=== PATIENT | female | born 1975 | race African-American/Black ===

== ENCOUNTER 2021-11-12 12:14 | Emergency (ER) | payer SELFPAY ==
[2021-11-12 15:18] LABS: ALT (SGPT) 15 U/L (8-55); AST (SGOT) 27 U/L (5-34); Albumin 3.3 g/dL (3.5-5.0); Alkaline Phosphatase 66 U/L (40-110); Anion Gap 15 mmol/L (10-20); BUN (Urea Nitrogen) 9 mg/dL (7.0-18.7); Bilirubin, Total 0.2 mg/dL (0.2-1.2); Calc. Creatinine Clearance 0 mL/min (70-130); Calcium 8.5 mg/dL (7.8-10.44); Carbon Dioxide 24 mmol/L (22-29); Chloride 104 mmol/L (98-107); Globulin 4.4 g/dL (2.4-3.5); Glucose 73 mg/dL (70-105); Potassium 4.8 mmol/L (3.5-5.1); Protein, Total 7.7 g/dL (6.0-8.3); Sodium 138 mmol/L (136-145)
[2021-11-12 16:18] LABS: Bilirubin Neg (Negative); Blood, Urine Negative (Negative); Clarity Clear (Clear); Glucose, Urine (Dipstick) Normal (Negative); Ketone, Urine Negative (Negative); Leukocyte 100 (Negative); Nitrite Negative (Negative); Protein, Urine (Dipstick) Negative (Neg-Trace); Urobilinogen Normal mg/dL (Less than 2)
[2021-11-12 16:30] LABS: Bacteria/HPF Rare-Few HPF (None Seen); RBC/HPF 0-3 HPF (0-3)
[2021-11-12 16:38] LABS: Hemoglobin 6.6 g/dL (12.0-15.5); Mean Corpuscular HGB CONC 27.5 g/dL (32.0-36.0); Mean Corpuscular Hemoglobin 14.3 pg (27.0-33.0); Mean Corpuscular Volume 51.9 fl (81.6-98.3); Platelet Count 416 10x3/uL (150-450); RBC Distribution Width 24.1 % (11.5-14.5); Red Blood Cell (RBC) Count 4.62 10x6/uL (3.90-5.03); White Blood Cell (WBC) Count 13.2 10x3/uL (3.5-10.5)
[2021-11-12] MEDS ORDERED: Acetaminophen 500 MG TAB ONE (17:21)
[2021-11-12 17:32] LABS: #Basophils 0.1 10x3/uL (0.0-0.2); #Eosinphils 0.3 10x3/uL (0.0-0.5); #Monocytes 0.7 10x3/uL (0.0-1.1); #Neutrophils 9.4 10x3/uL (1.5-8.4); %Basophils 0.9 % (0.0-2.0); %Eosinophils 2.5 % (0.0-6.0); %Lymphocytes 19.5 % (18.0-47.0); %Monocytes 5.1 % (0.0-10.0); %Neutrophils 71.2 % (40.0-75.0)
[2021-11-12 17:33] LABS: Anisocytosis MARKED = >30 cells (100X) (0-5/hpf); Hypochromia MARKED = >30 cells (100X) (0-5/hpf); Microcytosis MARKED = >30 cells (100X) (0-5/hpf); Platelet Morphology Comment Appears Adequate
== END 2021-11-12 18:26 | disposition home or self-care (01) ==
LOC: CSHERS 12:14
DX: D64.9 Anemia, unspecified (principal); I10 Essential (primary) hypertension
CPT/HCPCS: 36415; 71045; 80053; 81003; 81015; 84484; 85025; 86850; 86900; 86901; 93005

== ENCOUNTER 2023-11-28 09:12 | Emergency (ER) | payer SELFPAY ==
[2023-11-28 10:13] LABS: Anion Gap 15 mmol/L (10-20); BUN (Urea Nitrogen) 10 mg/dL (7.0-18.7); Calc. Creatinine Clearance 0 mL/min (70-130); Calcium 8.4 mg/dL (7.8-10.44); Carbon Dioxide 19 mmol/L (22-29); Chloride 107 mmol/L (98-107); Estimated GFR 78; Glucose 82 mg/dL (70-105); Potassium 4.1 mmol/L (3.5-5.1); Sodium 137 mmol/L (136-145)
[2023-11-28] MEDS ORDERED: Ipratropium/Albuterol 3 ML NEB ONE (10:16)
[2023-11-28 10:22] LABS: Troponin I Less than 0.010 ng/mL (< 0.028)
[2023-11-28 10:55] LABS: #Basophils 0.1 10x3/uL (0.0-0.2); #Eosinphils 0.2 10x3/uL (0.0-0.5); #Monocytes 0.4 10x3/uL (0.0-1.1); #Neutrophils 6.1 10x3/uL (1.5-8.4); %Basophils 1.1 % (0.0-2.0); %Lymphocytes 22.4 % (18.0-47.0); %Monocytes 4.9 % (0.0-10.0); %Neutrophils 69.1 % (40.0-75.0); Hematocrit 17.2 % (34.9-44.5); Hemoglobin 4.4 g/dL (12.0-15.5); Mean Corpuscular HGB CONC 25.6 g/dL (32.0-36.0); Mean Corpuscular Hemoglobin 12.8 pg (27.0-33.0); Platelet Count 105 10x3/uL (150-450); RBC Distribution Width 28.4 % (11.5-14.5); Red Blood Cell (RBC) Count 3.44 10x6/uL (3.90-5.03); White Blood Cell (WBC) Count 8.8 10x3/uL (3.5-10.5)
[2023-11-28 18:25] LABS: Anisocytosis MODERATE=16-30 cells (100X) (0-5/hpf); Poikilocytosis SLIGHT = 6-15 cells (100X) (0-5/hpf)
[2023-11-28 18:26] LABS: Microcytosis MODERATE=15-30 cells (100X) (0-5/hpf)
[2023-11-28 18:27] LABS: Hypochromia MARKED = >30 cells (100X) (0-5/hpf)
[2023-11-28 18:28] LABS: Schistocytes SLIGHT = 2-5 cells (100X) (0-1/hpf)
[2023-11-28 18:30] LABS: Tear Drops SLIGHT = 2-5 cells (100X) (0-1/hpf)
[2023-11-28 18:31] LABS: Platelet Adequacy Comment Appears Decreased; Reflex for Review?? YES
== END 2023-11-28 17:07 | disposition home or self-care (01) ==
LOC: CSHERS 09:12
DX: D64.9 Anemia, unspecified (principal); I10 Essential (primary) hypertension
CPT/HCPCS: 36415; 36430; 71045; 80048; 84484; 85025; 85060; 86850; 86900; 86901; 93005; 94640; 94760; J7620; P9016

== ENCOUNTER 2024-03-11 18:26 | Emergency (ER) | payer SELFPAY ==
[2024-03-11] MEDS ORDERED: Fluorescein Opthalmic Strip ONE (19:09)
== END 2024-03-11 20:20 | disposition home or self-care (01) ==
LOC: CSHERS 18:26
DX: S05.02XA Injury of conjunctiva and corneal abrasion without foreign body, left eye, initial encounter (principal); I10 Essential (primary) hypertension; X58.XXXA Exposure to other specified factors, initial encounter
CPT/HCPCS: 99283

== ENCOUNTER 2024-03-11 21:52 | Emergency (ER) | payer SELFPAY ==
[2024-03-11] MEDS ORDERED: Fluorescein Opthalmic Strip ONE (23:39)
[2024-03-11] MEDS ORDERED: Tetracaine 0.5% PF 4 ML BOT ONE (23:39)
== END 2024-03-11 23:59 | disposition home or self-care (01) ==
LOC: CSHERS 21:52
DX: S05.02XA Injury of conjunctiva and corneal abrasion without foreign body, left eye, initial encounter (principal); I10 Essential (primary) hypertension; X58.XXXA Exposure to other specified factors, initial encounter
CPT/HCPCS: 99283

== ENCOUNTER 2024-06-22 10:23 | Observation (INO) | payer OTHER, SELFPAY ==
[2024-06-22 16:58] VITALS: BMI 29.2
[2024-06-22] MEDS: Acetaminophen 500 MG TAB PO PRN (17:45)
[2024-06-22] MEDS: diphenhydrAMINE 25 MG CAP PO SCH (21:11)
[2024-06-22] MEDS: diphenhydrAMINE 25 MG CAP PO PRN (22:40)
[2024-06-23 06:12] LABS: Hematocrit 24.8 % (34.9-44.5); Hemoglobin 7.6 g/dL (12.0-15.5)
[2024-06-23 16:25] VITALS: BP 133/82; TEMP 99
[2024-06-23 17:17] LABS: Hematocrit 29.7 % (34.9-44.5); Hemoglobin 9.2 g/dL (12.0-15.5)
== END 2024-06-23 18:45 | disposition home or self-care (01) ==
LOC: CSHTELE 14:43 → CSHPP 15:20
PROVIDERS: ADMIT Obstetrics & Gynecology; ATTEND Obstetrics & Gynecology
DX: D25.9 Leiomyoma of uterus, unspecified (principal); N93.9 Abnormal uterine and vaginal bleeding, unspecified; I10 Essential (primary) hypertension; J45.909 Unspecified asthma, uncomplicated; F31.9 Bipolar disorder, unspecified; Z79.899 Other long term (current) drug therapy
CPT/HCPCS: 36415; 36430; 85014; 85018; 86850; 86870; 86880; 86900; 86901; 86905; 86922; G0378; P9016

== ENCOUNTER 2025-05-21 13:53 | Inpatient (IN) | payer OTHER ==
[2025-05-21 14:48] LABS: Platelet Count 243 10x3/uL (150-450)
[2025-05-21 14:49] LABS: #Basophils 0.08 10x3/uL (0.0-0.2); #Eosinophils 0.56 10x3/uL (0.0-0.5); #Monocytes 0.72 10x3/uL (0.0-1.1); #Neutrophils 8.51 10x3/uL (1.5-8.4); %Basophils 0.7 % (0.0-2.0); %Eosinophils 4.7 % (0.0-6.0); %Lymphocytes 17.0 % (18.0-47.0); %Monocytes 6.0 % (0.0-10.0); %Neutrophils 71.2 % (40.0-75.0); Hematocrit 17.3 % (34.9-44.5); Hemoglobin 4.6 g/dL (12.0-15.5); Mean Corpuscular Hemoglobin 14.1 pg (27.0-33.0); Mean Corpuscular Volume 53.1 fL (81.6-98.3); Red Blood Cell (RBC) Count 3.26 10x6/uL (3.90-5.03); White Blood Cell (WBC) Count 11.95 10x3/uL (3.5-10.5)
[2025-05-21 14:57] LABS: ALT (SGPT) 10 U/L (Less than 34); AST (SGOT) 38 U/L (11-34); Albumin 3.8 g/dL (3.1-4.5); Alkaline Phosphatase 52 U/L (40-110); Anion Gap 14 mmol/L (10-20); BUN (Urea Nitrogen) 15 mg/dL (7.0-18.7); Bilirubin, Total 0.2 mg/dL (0.3-1.2); Calc. Creatinine Clearance 0 mL/min (70-130); Calcium 8.5 mg/dL (7.8-10.44); Carbon Dioxide 20 mmol/L (22-29); Chloride 105 mmol/L (98-107); Globulin 4.1 g/dL (2.4-3.5); Glucose 84 mg/dL (70-105); Potassium 3.9 mmol/L (3.5-5.1); Sodium 135 mmol/L (136-145)
[2025-05-21] MEDS ORDERED: Ondansetron PF 4 MG/2 ML Vial ONE (15:04)
[2025-05-21] MEDS ORDERED: Acetaminophen 500 MG TAB ONE (16:47)
[2025-05-21 17:11] LABS: Glucose, Urine (Dipstick) Normal (Negative); Leukocyte 500 (Negative); Protein, Urine (Dipstick) 15 mg/dl (Neg-Trace); Specific Gravity, Urine 1.020 (1.005-1.030)
[2025-05-21 17:15] LABS: Pregnancy Test - Urine (BHCG) Negative (Negative); Pregu Control Background? CLEAR/WHITE (CLR/WHITE); Pregu Control Bar Appear? YES (CONTROL BAR)
[2025-05-21 17:40] LABS: Bacteria/HPF 4+ HPF (None Seen); CAUTI Indications for Culture Acute Hematuria; RBC/HPF 0-3 HPF (0-3); Urine Culture Reflex No No
[2025-05-21 17:46] LABS: Anisocytosis MARKED = >30 cells (100X) (0-5/hpf); MDiff Complete? YES; Microcytosis MARKED = >30 cells (100X) (0-5/hpf); Platelet Adequacy Comment Appears Adequate; Poikilocytosis MODERATE=16-30 cells (100X) (0-5/hpf); Polychromasia SLIGHT = 2-3 cells (100X) (0-2/hpf); Schistocytes SLIGHT = 2-5 cells (100X) (0-1/hpf); Target Cells SLIGHT = 2-5 cells (100X) (0-1/hpf)
[2025-05-21 17:51] LABS: Reflex for Review?? YES
[2025-05-21 20:46] VITALS: BMI 27.7
[2025-05-21] MEDS: Acetaminophen 500 MG TAB PO PRN (22:17)
[2025-05-21] MEDS: Ondansetron PF 4 MG/2 ML Vial IVP PRN (22:17)
[2025-05-21] MEDS: diphenhydrAMINE 25 MG CAP PO PRN (23:42)
[2025-05-21] MEDS: cefTRIAXone\\ROCEPHIN 1 GM in Sodium Chloride 0.9% 100 ML IVPB SCH (23:42)
[2025-05-22 03:08] LABS: Cocaine Metabolite Screen PRELIM POSITIVE (Negative); THC/Cannabinoid Screen Negative (Negative); Tricyclic Screen Negative (Negative)
[2025-05-22 04:49] LABS: Hematocrit 14.5 % (34.9-44.5); Hemoglobin 3.8 g/dL (12.0-15.5)
[2025-05-22 05:00] LABS: ALT (SGPT) 9 U/L (Less than 34); AST (SGOT) 13 U/L (11-34); Albumin 2.8 g/dL (3.1-4.5); Alkaline Phosphatase 38 U/L (40-110); Anion Gap 10 mmol/L (10-20); BUN (Urea Nitrogen) 9 mg/dL (7.0-18.7); Bilirubin, Total 0.1 mg/dL (0.3-1.2); Calc. Creatinine Clearance 85 mL/min (70-130); Calcium 7.3 mg/dL (7.8-10.44); Carbon Dioxide 22 mmol/L (22-29); Chloride 111 mmol/L (98-107); Globulin 3.0 g/dL (2.4-3.5); Glucose 82 mg/dL (70-105); Potassium 3.8 mmol/L (3.5-5.1); Sodium 139 mmol/L (136-145)
[2025-05-22] MEDS ORDERED: Iron Sucrose Complex 500 MG in Sodium Chloride 0.9% 250 ML 250 ML IVPB SCH (06:15)
[2025-05-22] MEDS ORDERED: Electrolyte Replacement Protocol 1 EACH FS PRN (07:15)
[2025-05-22] MEDS: Folic Acid 1 MG TAB PO SCH (08:34)
[2025-05-22] MEDS: Cephalexin 500 MG CAP PO SCH (08:35)
[2025-05-22] MEDS: Pantoprazole 40 MG VIAL IVP SCH (08:35)
[2025-05-22] MEDS: Multivit, Therapeutic 1 TAB PO SCH (08:35)
[2025-05-22 13:49] LABS: Hematocrit 21.9 % (34.9-44.5); Hemoglobin 6.0 g/dL (12.0-15.5)
[2025-05-22 13:53] VITALS: BMI 27.8
[2025-05-22] MEDS: Citalopram 20 MG TAB PO SCH (13:53)
[2025-05-22 19:32] LABS: Hematocrit 23.3 % (34.9-44.5); Hemoglobin 6.6 g/dL (12.0-15.5)
[2025-05-22 19:37] LABS: Platelet Count 313 10x3/uL (150-450)
[2025-05-22] MEDS: Sodium Ferric Gluconate 250 MG in Sodium Chloride 0.9% 250 ML 250 ML IVPB SCH (20:25)
[2025-05-22] MEDS: Acetaminophen 500 MG TAB PO SCH (20:33)
[2025-05-22 21:03] LABS: Iron 20 ug/dL (50-170); Iron Binding Capacity, Total 351 mcg/dL (265-497)
[2025-05-23 02:52] LABS: Platelet Count 298 10x3/uL (150-450)
[2025-05-23 02:53] LABS: Hematocrit 28.0 % (34.9-44.5); Hemoglobin 8.2 g/dL (12.0-15.5); Mean Corpuscular Hemoglobin 19.6 pg (27.0-33.0); Mean Corpuscular Volume 66.8 fL (81.6-98.3); Red Blood Cell (RBC) Count 4.19 10x6/uL (3.90-5.03); White Blood Cell (WBC) Count 13.45 10x3/uL (3.5-10.5)
[2025-05-23 03:15] LABS: #Basophils 0.19 10x3/uL (0.0-0.2); #Eosinophils 0.63 10x3/uL (0.0-0.5); #Monocytes 0.62 10x3/uL (0.0-1.1); #Neutrophils 10.03 10x3/uL (1.5-8.4); %Basophils 1.4 % (0.0-2.0); %Eosinophils 4.7 % (0.0-6.0); %Lymphocytes 13.9 % (18.0-47.0); %Monocytes 4.6 % (0.0-10.0); %Neutrophils 74.6 % (40.0-75.0); Macrocytosis SLIGHT = 6-15 cells (100X) (0-5/hpf); Microcytosis SLIGHT = 6-15 cells (100X) (0-5/hpf); Ovalocytes SLIGHT = 2-5 cells (100X) (0-1/hpf); Platelet Adequacy Comment Appears Adequate; Poikilocytosis MODERATE=16-30 cells (100X) (0-5/hpf); Polychromasia SLIGHT = 2-3 cells (100X) (0-2/hpf); Schistocytes SLIGHT = 2-5 cells (100X) (0-1/hpf); Spherocytes SLIGHT = 1-5 cells (100X) (None Seen)
[2025-05-23 03:18] LABS: Anion Gap 10 mmol/L (10-20); BUN (Urea Nitrogen) 9 mg/dL (7.0-18.7); Calc. Creatinine Clearance 72 mL/min (70-130); Calcium 7.9 mg/dL (7.8-10.44); Carbon Dioxide 23 mmol/L (22-29); Chloride 109 mmol/L (98-107); Glucose 78 mg/dL (70-105); Potassium 4.1 mmol/L (3.5-5.1); Sodium 138 mmol/L (136-145)
[2025-05-23 07:29] LABS: Troponin I 0.011 ng/mL (< 0.028)
[2025-05-23] MEDS ORDERED: Iopamidol 370 76% 100 ML VIAL ONE (12:45)
[2025-05-23] MEDS: Acetaminophen 500 MG TAB PO PRN (21:58)
[2025-05-24 02:29] LABS: Platelet Count 411 10x3/uL (150-450)
[2025-05-24 02:30] LABS: Hematocrit 28.0 % (34.9-44.5); Hemoglobin 8.1 g/dL (12.0-15.5); Mean Corpuscular Hemoglobin 19.2 pg (27.0-33.0); Mean Corpuscular Volume 66.4 fL (81.6-98.3); Red Blood Cell (RBC) Count 4.22 10x6/uL (3.90-5.03); White Blood Cell (WBC) Count 17.53 10x3/uL (3.5-10.5)
[2025-05-24 02:34] LABS: Anion Gap 10 mmol/L (10-20); BUN (Urea Nitrogen) 8 mg/dL (7.0-18.7); Calc. Creatinine Clearance 75 mL/min (70-130); Calcium 8.3 mg/dL (7.8-10.44); Carbon Dioxide 26 mmol/L (22-29); Chloride 106 mmol/L (98-107); Glucose 110 mg/dL (70-105); Potassium 3.8 mmol/L (3.5-5.1); Sodium 138 mmol/L (136-145)
[2025-05-24 03:26] LABS: Anisocytosis SLIGHT = 6-15 cells (100X) (0-5/hpf); MDiff Complete? YES; Macrocytosis SLIGHT = 6-15 cells (100X) (0-5/hpf); Microcytosis SLIGHT = 6-15 cells (100X) (0-5/hpf); Nucleated RBC (Manual Ct) 6 % (0); Platelet Adequacy Comment Appears Adequate
[2025-05-24 08:44] VITALS: BP 133/86; TEMP 98.2
[2025-05-24] MEDS: Cefdinir 300 MG CAP PO SCH (09:22)
[2025-05-24] MEDS: Pantoprazole 40 MG DR.TAB PO SCH (09:22)
[2025-05-25] MEDS ORDERED: Thiamine 100 MG TAB PO SCH (09:00)
== END 2025-05-24 10:55 | disposition short-term general hospital (02) | DRG 811 ==
LOC: CSHERS 13:53 → CSHICU 20:02 → OBSVTOIN 05-22 07:34
PROVIDERS: ADMIT Obstetrics & Gynecology; ATTEND Internal Medicine
PROC: 30233P1 Transfusion of Nonautologous Frozen Red Cells into Peripheral Vein, Percutaneous Approach (ICD-10-PCS; principal; 2025-05-22)
PROC: 30233N1 Transfusion of Nonautologous Red Blood Cells into Peripheral Vein, Percutaneous Approach (ICD-10-PCS; 2025-05-22)
DX: D62 Acute posthemorrhagic anemia (principal); J18.9 Pneumonia, unspecified organism; N39.0 Urinary tract infection, site not specified; I10 Essential (primary) hypertension; F31.9 Bipolar disorder, unspecified; D26.9 Other benign neoplasm of uterus, unspecified; N92.1 Excessive and frequent menstruation with irregular cycle; F10.10 Alcohol abuse, uncomplicated; D50.9 Iron deficiency anemia, unspecified
CPT/HCPCS: 36415; 36430; 71275; 74177; 76856; 80048; 80053; 80306; 81001; 81025; 82728; 83540; 83550; 83690; 83880; 84484; 85014; 85018; 85025; 85060; 86850; 86870; 86880; 86900; 86901; 86922; 87077; 87086; 87186; 93005; 93010; 93306; 96374; 96375; 96376; G0378; J0696; J2272; J2405; J2470; J2916; J3411; J7030; J7050; P9016; P9054; Q9967

== ENCOUNTER 2025-06-13 00:53 | Emergency (ER) | payer OTHER ==
[2025-06-13 01:27] LABS: Glucose, Urine (Dipstick) Normal (Negative); Leukocyte Negative (Negative); Protein, Urine (Dipstick) 15 mg/dl (Neg-Trace); Specific Gravity, Urine 1.025 (1.005-1.030)
[2025-06-13 01:30] LABS: Pregnancy Test - Urine (BHCG) Negative (Negative); Pregu Control Background? CLEAR/WHITE (CLR/WHITE); Pregu Control Bar Appear? YES (CONTROL BAR)
[2025-06-13 01:38] LABS: Cocaine Metabolite Screen PRELIM POSITIVE (Negative); THC/Cannabinoid Screen Negative (Negative); Tricyclic Screen Negative (Negative)
[2025-06-13 01:42] LABS: Platelet Count 186 10x3/uL (150-450)
[2025-06-13 01:43] LABS: Hematocrit 38.2 % (34.9-44.5); Hemoglobin 11.8 g/dL (12.0-15.5); Mean Corpuscular Hemoglobin 21.2 pg (27.0-33.0); Mean Corpuscular Volume 68.6 fL (81.6-98.3); Red Blood Cell (RBC) Count 5.57 10x6/uL (3.90-5.03); White Blood Cell (WBC) Count 11.46 10x3/uL (3.5-10.5)
[2025-06-13 01:45] LABS: MDiff Complete? YES; Microcytosis MODERATE=15-30 cells (100X) (0-5/hpf); Platelet Adequacy Comment Appears Adequate
[2025-06-13 01:46] LABS: Acetaminophen Less than 10 mcg/mL (Less than 10); Salicylate Less than 8.0 mg/dL (Less than 8.0)
[2025-06-13 01:49] LABS: Bacteria/HPF None Seen HPF (None Seen); CAUTI Indications for Culture Pelvic or flank pain; WBC/HPF None Seen HPF (0-3)
[2025-06-13 01:50] LABS: Urine Culture Reflex No No
[2025-06-13 01:58] LABS: ALT (SGPT) 28 U/L (Less than 34); AST (SGOT) 23 U/L (11-34); Albumin 4.2 g/dL (3.1-4.5); Alkaline Phosphatase 57 U/L (40-110); Anion Gap 16 mmol/L (10-20); BUN (Urea Nitrogen) 11 mg/dL (7.0-18.7); Bilirubin, Total 0.2 mg/dL (0.3-1.2); Calc. Creatinine Clearance 0 mL/min (70-130); Calcium 8.8 mg/dL (7.8-10.44); Carbon Dioxide 18 mmol/L (22-29); Chloride 108 mmol/L (98-107); Globulin 4.1 g/dL (2.4-3.5); Glucose 93 mg/dL (70-105); Potassium 3.7 mmol/L (3.5-5.1); Sodium 138 mmol/L (136-145)
[2025-06-13] MEDS ORDERED: Ketorolac Tromethamine 30 MG (1 mL) VIAL ONE (03:38)
== END 2025-06-13 10:48 ==
LOC: CSHERS 00:53
DX: D25.9 Leiomyoma of uterus, unspecified (principal); F32.9 Major depressive disorder, single episode, unspecified; F14.10 Cocaine abuse, uncomplicated; R45.851 Suicidal ideations; N92.0 Excessive and frequent menstruation with regular cycle; G89.29 Other chronic pain; N64.9 Disorder of breast, unspecified; N83.201 Unspecified ovarian cyst, right side; I10 Essential (primary) hypertension; Z79.899 Other long term (current) drug therapy
CPT/HCPCS: 76856; 80053; 80306; 80307; 81001; 81025; 85025; 86850; 86900; 86901; 93976; 96374; J1885

== ENCOUNTER 2025-08-23 06:02 | Emergency (ER) | payer OTHER ==
[2025-08-23 06:57] LABS: BHCG - Serum Negative (NEGATIVE); Pregs Control Background? CLEAR/WHITE (CLR/WHITE); Pregs Control Bar Appear? YES (CONTROL BAR)
[2025-08-23 07:08] LABS: #Basophils 0.06 10x3/uL (0.0-0.2); #Eosinophils 0.31 10x3/uL (0.0-0.5); #Monocytes 0.71 10x3/uL (0.0-1.1); #Neutrophils 8.48 10x3/uL (1.5-8.4); %Basophils 0.6 % (0.0-2.0); %Eosinophils 2.9 % (0.0-6.0); %Lymphocytes 9.1 % (18.0-47.0); %Monocytes 6.6 % (0.0-10.0); %Neutrophils 78.3 % (40.0-75.0); ALT (SGPT) Less than 4 U/L (Less than 34); AST (SGOT) 18 U/L (11-34); Albumin 2.9 g/dL (3.1-4.5); Alkaline Phosphatase 75 U/L (40-110); Anion Gap 14 mmol/L (10-20); BUN (Urea Nitrogen) 9 mg/dL (7.0-18.7); Bilirubin, Total 0.3 mg/dL (0.3-1.2); Calc. Creatinine Clearance 0 mL/min (70-130); Calcium 8.1 mg/dL (7.8-10.44); Carbon Dioxide 24 mmol/L (22-29); Chloride 101 mmol/L (98-107); Globulin 4.7 g/dL (2.4-3.5); Glucose 83 mg/dL (70-105); Hematocrit 25.5 % (34.9-44.5); Hemoglobin 7.7 g/dL (12.0-15.5); Lipase 5 U/L (8-78); Mean Corpuscular Hemoglobin 18.5 pg (27.0-33.0); Mean Corpuscular Volume 61.2 fL (81.6-98.3); Platelet Count 415 10x3/uL (150-450); Potassium 2.9 mmol/L (3.5-5.1); Red Blood Cell (RBC) Count 4.17 10x6/uL (3.90-5.03); Sodium 136 mmol/L (136-145); White Blood Cell (WBC) Count 10.81 10x3/uL (3.5-10.5)
[2025-08-23 07:46] LABS: Glucose, Urine (Dipstick) Normal (Negative); Leukocyte 25 (Negative); Protein, Urine (Dipstick) 30 mg/dl (Neg-Trace); Specific Gravity, Urine 1.015 (1.005-1.030)
[2025-08-23 08:04] LABS: Bacteria/HPF 1+ HPF (None Seen); CAUTI Indications for Culture Fever or rigors
[2025-08-23 08:05] LABS: Urine Culture Reflex No No
[2025-08-23] MEDS ORDERED: Droperidol 5 MG/2 ML VIAL ONE (08:25)
[2025-08-23] MEDS ORDERED: Ketorolac Tromethamine 30 MG (1 mL) VIAL ONE (08:25)
[2025-08-23 09:29] LABS: Troponin I Less than 0.010 ng/mL (< 0.028)
== END 2025-08-23 10:09 | disposition home or self-care (01) ==
LOC: CSHERS 06:02
DX: B34.9 Viral infection, unspecified (principal); I10 Essential (primary) hypertension; Z75.3 Unavailability and inaccessibility of health-care facilities
CPT/HCPCS: 36415; 71045; 80053; 81001; 83690; 84484; 84703; 85025; 87428; 93005; 96374; 96375; J1790; J1885; Q0162